=== PATIENT | male | born 1955 | race Caucasian/White ===

== ENCOUNTER 2019-02-21 06:45 | Day surgery (SDC) | payer MEDICAID ==
[~2019-02-21 06:45] MED LIST: FLOMAX0.4 MG PO; MULTI-DAY VITAM1 TAB PO; VITAMIN E200 UNI1 PO
[2019-02-21 07:08] VITALS: BP 108/64; BMI 22.5
--- NOTE | 2019-02-21 12:05 | NUR ---
DISCHARGE INSTRUCTIONS REVIEWED WITH PATIENT AND FRIEND, PATIENT DISCHARGED HOME VIA WHEELCHAIR TO PRIVATE VEHICLE WITH FRIEND
--- NOTE | 2019-02-21 13:37 | OP ---
PATIENT NAME: JOHN ALMONTE MEDICAL RECORD: [id number] :55 LOCATION:[facility] ADMISSION DATE: SURGEON: JACINTO RESENDIZ MD DATE OF OPERATION: 02/21/2019 SURGEON: Jacinto Resendiz MD ANESTHESIA: TIVA by Mary Beth Escalera CRNA. DIAGNOSES: Obstructive BPH, unresponsive to Flomax for 5 years. PSA 1.4. ELEN estimated size is 60 grams. IPSS is 11, quality of life score is 4, on Flomax. There is no history of urinary tract infections and he is not in urinary retention. PROCEDURE: UroLift times 5. FINDINGS: Obstructive lateral lobes, obstructive bladder neck. No median lobe. Trabeculated bladder without bladder tumors. BLOOD LOSS: None. CLINICAL HISTORY: This is a 63-year-old male, who has a longstanding complaint of obstructive BPH. He has been on Flomax for 5 years. He continues to have daytime urinary frequency and urgency without incontinence. There is hesitancy in getting started and the stream would stop and go. He feels empty after voiding. Two and a half years ago, he had a kidney stone removed by ureteroscopy and the urologist who performed the procedure told the patient that he has narrow prostatic urethra. He has not had any urinary tract infections. His PSA was 1.4 this year. IPSS and quality of life scores are as above. He wishes to proceed with a UroLift procedure. HE IS ALLERGIC TO AMOXICILLIN. He tolerated Ancef 1 gram IV director hospice operations to the OR. DESCRIPTION OF PROCEDURE: The patient was given IV sedation. He was then placed into lithotomy position. Lidocaine jelly was placed into the urethra and he was prepped and draped. The UroLift scope was introduced. There are no urethral strictures. The prostatic urethra was obstructive in the lateral lobes and also at the bladder neck. There was no median lobe and the bladder neck is tight. Going into the bladder, the bladder was trabeculated. No bladder tumors were seen. Single ureteral orifices were seen on each side. The first 2 units were placed at the level of the bladder neck at the anterolateral sulcus with 1 unit being placed at each side approximately 1.5 cm distal to the bladder neck. Once these units were placed, it was clear that there was still obstruction of the bladder neck level. Two more units were placed to make a box configuration. The latter 2 units were placed at the mid prostatic urethral level and the lateral prostate. This was again about 1.5 cm distal to the bladder neck. This did open up the bladder neck quite nicely. We then went back in with the visual obturator and noticed that there was still obstruction at the level of the verumontanum. I placed one unit on the left anterolateral sulcus of the verumontanum level. This opened up the prostatic anterior urethral channel at the apical level quite nicely. There was a nice urethral channel all the way through. I left the bladder partly full with irrigation fluid. This will allow us to perform a voiding trial. I will see the patient in followup in 1 months' time. TRANSINT:[id number] Voice Confirmation ID: [id number] DOCUMENT ID: [id number] OPERATIVE REPORT [id number] JOHN ALMONTE, JACINTO Jorgensen MD at 1337 CC: [id number] DICTATION DATE: 02/21/19 1121 PURCHASING INTERN: 02/21/19 1318 [facility] [address] [place] [address]
== END 2019-02-21 12:05 | disposition home or self-care (01) ==
LOC: D.OPS 06:45 → D.PAN 08:35 → D.OPS 08:45 → D.PAN 09:20 → D.OPS 09:30 → D.PAN 09:30 → D.OPS 12:05
PROVIDERS: ATTEND Urology
DX: N40.1 Benign prostatic hyperplasia with lower urinary tract symptoms (principal); N13.8 Other obstructive and reflux uropathy; N32.89 Other specified disorders of bladder; Z01.812 Encounter for preprocedural laboratory examination

== ENCOUNTER 2019-06-16 05:00 | Day surgery (SDC) | payer MEDICAID ==
[2019-06-15 08:41] LABS: BASOPHILS 0.7 % (0-2); EOSINOPHILS 1.9 % (0-7); HEMATOCRIT 48.1 % (42.0-54.0); HEMOGLOBIN 16.8 g/dL (13.5-17.5); IMMATURE GRANULOCYTES 0.2 % (0-5); LYMPHOCYTES 25.5 % (15-50); MCH 33.9 pg (26.0-34.0); MCHC 34.9 g/dL (31.0-37.0); MCV 97.2 fL (80.0-100.0); MEAN PLATELET VOLUME 9.4 fL (7.4-10.4); NEUTROPHILS 60.7 % (40-80); PLATELET COUNT 258 10x3/uL (130-400); RBC 4.95 10x6/uL (4.20-6.10); RDW 13.3 % (11.5-14.5); WBC 8.9 10x3/uL (4.8-10.8)
[2019-06-15 09:10] LABS: CALC OSMOLALITY 284 mosm/kg (275-300); CALCIUM 8.9 mg/dL (8.5-10.1); CARBON DIOXIDE 30.9 mmol/L (21.0-32.0); CHLORIDE - SERUM 106 mmol/L (98-107); GLUCOSE 79 mg/dL (74-106); POTASSIUM - SERUM 4.6 mmol/L (3.5-5.1); SODIUM 143 mmol/L (136-145); UREA NITROGEN 15 mg/dL (7-18); eGFR NON AFRICAN AMERICAN 80 mL/min (90-120)
[~2019-06-16] VITALS: Ht 182.9 cm; Wt 73.9 kg
[2019-06-16 06:17] VITALS: BP 116/70; Ht 182.9 cm; Wt 73.9 kg
[2019-06-16] MEDS ORDERED: HYDROCODON-ACE1 EA10 PO (08:14)
--- NOTE | 2019-06-29 13:49 | OP ---
PATIENT NAME: JOHN ALMONTE MEDICAL RECORD: [id number] :55 LOCATION:[facility] ADMISSION DATE: SURGEON: KALPESH BARONE MD DATE OF OPERATION: 06/16/2019 PREOPERATIVE DIAGNOSES: 1. Right inguinal hernia. 2. BPH. 3. Tobacco dependence syndrome. POSTOPERATIVE DIAGNOSES: 1. Right inguinal hernia. 2. BPH. 3. Tobacco dependence syndrome. PROCEDURE: Right inguinal hernia repair with large PHS mesh. SURGEON: Kalpesh Barone MD REPORT OF PROCEDURE: The patient's right groin was prepped and draped in sterile fashion. An oblique incision was made above the inguinal ligament. Electrocautery was used to dissect through the subcutaneous tissues down to the external oblique fascia. This fascia was opened up to the external ring using electrocautery. The spermatic cord was elevated and a [place] was placed around it. The ilioinguinal nerve was found and high ligated. The patient did not have any indirect hernia defects, but there was a direct hernia defect which incorporated most of the inguinal floor. The tissue was very lax in this area. I was able to open this up and a separate out the preperitoneal space of Retzius. A large PHS mesh was inserted and then sutured down on all sides using multiple interrupted 0 Vicryls. The wound was then irrigated out with normal saline and care was taken to assure there was no sign of any bleeding. The external oblique fascia was closed with running 2-0 Vicryl, Dee's was closed with interrupted 3-0 Vicryl, and the skin was closed with running subcutaneous 5-0 Monocryl. A total of 10 mL of 0.25% Marcaine with epinephrine was infused into the surrounding tissues, and the wound was dressed appropriately. COMPLICATIONS: None. CONDITION: Stable. ANESTHESIA: General endotracheal and local. BLOOD LOSS: Minimal. TRANSINT:[id number] Voice Confirmation ID: [id number] DOCUMENT ID: [id number] KALPESH BARONE MD at 1349 CC: IRIS THORPE MD [id number] DICTATION DATE: 06/16/19 0817 BOARD ATTENDANT: 06/16/19 0832 [facility] 06/16/19 [place] [address]
== END 2019-06-16 10:00 | disposition home or self-care (01) ==
LOC: D.OPS 05:00 → D.PAN 07:15 → D.OPS 07:15
PROVIDERS: ATTEND Surgery
DX: K40.90 Unilateral inguinal hernia, without obstruction or gangrene, not specified as recurrent (principal)